=== PATIENT | female | born 1945 ===

== ENCOUNTER 2017-08-29 09:10 | Day surgery (SDC) | payer OTHER ==
[2017-08-27 15:31] VITALS: BMI 29.5
[2017-08-29] MEDS ORDERED: Famotidine 20mg/50ml 20 MG/50 ML BAG IVPB ONE (09:23)
[2017-08-29] MEDS ORDERED: DiphenhydrAMINE 50 mg/ml Inj ONE (09:23)
[2017-08-29] MEDS ORDERED: Midazolam 2 MG/2 ML VIAL ONE (09:28)
[2017-08-29] MEDS ORDERED: Lidocaine 2% Inj (20ml) ONE (09:28)
[2017-08-29] MEDS ORDERED: Iohexol 350mgl/ml 50 ML ONE (09:29)
[2017-08-29] MEDS ORDERED: Iodixanol 320 MG/ML 200 ML BOTTLE IV ONE (09:29)
[2017-08-29] MEDS ORDERED: Nitroglycerin 50mg in D5W 50 MG/250 ML BOTTLE IV ONE (09:29)
[2017-08-29] MEDS ORDERED: Verapamil 2 ML ONE (09:40)
[2017-08-29] MEDS ORDERED: Adenosine 90 mg/30mL IV ONE (10:07)
[2017-08-29] MEDS ORDERED: Iodixanol 320 MG/ML 100 ML BOTTLE IV ONE (10:54)
[2017-08-29] MEDS ORDERED: Bacitracin 500 Units/gm Oint Foilpak UD TOP ONE (11:14)
[2017-08-29] MEDS ORDERED: Sodium Chloride 0.9% 1,000 ML IV SCH (11:15)
[2017-08-29 13:37] VITALS: TEMP 97.5
[2017-08-29 13:39] VITALS: RESP 20
[2017-08-29 14:44] VITALS: BP 178/82; PULSE 64
--- NOTE | 2017-09-07 11:51 | CARDCATH ---
PROCEDURE DATE: 08/29/2017 INDICATIONS: Milly Gonzalez is a 71-year-old female who had history of CAD, status post stenting few years ago, had recently undergone a cardiac catheterization for non-STEMI last month for what was noted to have RCA disease and left circumflex disease. She had recurrent episodes of chest pain, unstable angina at rest and came back to [facility] and was subsequently transferred to [facility] for further reevaluation and possible treatment of her RCA and left circumflex disease. PROCEDURE PERFORMED: Left heart catheterization with selective left and right coronary angiogram. FFR guided PCI of right PDA and right mid RCA with deployment of 2 drug-eluting stents. Lesion reduction in the PDA from 80% down to 0% JOSE LUIS-3 flow. Lesion reduction in mid RCA from 65-70% down to 0% JOSE LUIS-3 flow. FFR evaluation of mid left anterior descending artery. Proximal edge of the stent restenosis about 55% and FFR evaluation of the left circumflex side branch pinching with FFR which was physiologically nonsignificant. TECHNIQUES OF PROCEDURE: After obtaining informed consent, the patient was brought to the cardiac catheterization suite in post-absorptive and non-sedated state. The patient was prepped and draped in the usual sterile fashion. A 2% lidocaine was used for infiltration of anesthesia. Using modified Seldinger technique, a 6-Kittitian sheath was introduced into the radial artery subsequently over a J-wire. JR4 guiding catheter used to engage the right coronary system. Angiographic finding of the RCA, proximal stent patent distal edge of the stent had a moderate 65% stenosis. Right PDA at the bifurcation of the PLV had 75% stenosis. TECHNIQUES OF INTERVENTION: After reviewing the above angiographic findings, it was decided to further interrogate the RCA with the help of fractional flow reserve wire. FFR at the distal PDA was 0.69 and after fixing the distal PDA, the mid RCA FFR was 0.72, which was fixed with a drug eluting stent. Subsequently, after placing the mid RCA and the right PDA, JL4 guiding catheter used to engage the left coronary system. Angiogram of the left coronary system was obtained, which showed left circumflex artery was patent. Left circ after a stent had a pinching noted over 99% angiographic stenosis. LAD had a proximal stent with the proximal edge of stent consistent with a possible intermediate lesion about 55% stenosis. FFR of the prox LAD was done, which was physiologically nonsignificant. Subsequently, the FFR wire was used to place in the circ side branch occlusion where it was physiologically nonsignificant. IMPRESSION: Successful revascularization of mid and distal right coronary artery, deployment of 2 drug-eluting stents. Fractional flow reserve interrogation of the left anterior descending and left circumflex was physiologically nonsignificant. Normal left ventricular ejection fraction. RECOMMENDATIONS: The patient can transfer back to [facility] in the 3-hour window. Give the patient dual antiplatelet therapy. Discharge home and follow up as needed by her direct care staffer. Thomas Gillespie MD
== END 2017-08-29 14:49 | disposition short-term general hospital (02) ==
LOC: CATH 09:10 → 2RNO 11:34 → CATH 14:49
PROVIDERS: ATTEND Internal Medicine Interventional Cardiology
DX: I25.110 Atherosclerotic heart disease of native coronary artery with unstable angina pectoris (principal); I25.2 Old myocardial infarction; I10 Essential (primary) hypertension
CPT/HCPCS: 82948; 85175; 93458; 93571; 93572; 99152; 99153; C1725; C1769 ×2; C1874 ×2; C1887 ×2; C1894; C9600; J0153; J1200; J1644 ×2; J1940; J2250; J2930; J3010; J7030; J7040; Q9966; Q9967 ×2